=== PATIENT | female | born 1985 | race Caucasian/White ===

== ENCOUNTER 2017-12-11 11:27 | Inpatient (IN) | payer OTHER ==
[~2017-12-11] VITALS: Ht 160 cm; Wt 67.1 kg
== END 2018-01-11 11:47 | disposition home or self-care (01) | DRG 775 ==
LOC: LDR 01-09 09:40 → SURG-SUITE 01-09 09:40 → LDR 01-09 11:11 → SURG-SUITE 01-09 15:09 → OB/GYN 01-10 11:25 → SURG-SUITE 01-11 11:47
PROC: 10E0XZZ Delivery of Products of Conception, External Approach (ICD-10-PCS; principal; 2018-01-09)
PROC: 0KQM0ZZ Repair Perineum Muscle, Open Approach (ICD-10-PCS; 2018-01-09)
PROC: 10907ZC Drainage of Amniotic Fluid, Therapeutic from Products of Conception, Via Natural or Artificial Opening (ICD-10-PCS; 2018-01-09)
PROC: 3E033VJ Introduction of Other Hormone into Peripheral Vein, Percutaneous Approach (ICD-10-PCS; 2018-01-09)
PROC: 4A033R1 Measurement of Arterial Saturation, Peripheral, Percutaneous Approach (ICD-10-PCS; 2018-01-09)
PROC: 4A1HXCZ Monitoring of Products of Conception, Cardiac Rate, External Approach (ICD-10-PCS; 2018-01-09)
DX: O70.1 Second degree perineal laceration during delivery (principal); Z37.0 Single live birth; Z3A.39 39 weeks gestation of pregnancy

== ENCOUNTER 2018-01-01 10:41 | Outpatient (CLI) | payer OTHER | END 2018-01-01 11:46 | disposition home or self-care (01) | LOC: NST 10:41 | DX: Z34.83 Encounter for supervision of other normal pregnancy, third trimester (principal) ==

== ENCOUNTER 2018-01-07 11:02 | Outpatient (CLI) | payer OTHER | END 2018-01-07 12:18 | disposition home or self-care (01) | LOC: NST 11:02 | DX: Z34.83 Encounter for supervision of other normal pregnancy, third trimester (principal) ==

== ENCOUNTER 2020-07-30 12:00 | Inpatient (IN) | payer OTHER ==
[~2020-07-30] VITALS: Ht 160 cm; Wt 66.2 kg
[2020-08-05] MEDS ORDERED: PRENATAL TABLE1 EAC1 PO (09:26)
== END 2020-08-07 13:05 | disposition home or self-care (01) | DRG 807 ==
LOC: SURG-SUITE 08-05 07:37 → LDR 08-05 07:37 → SURG-SUITE 08-05 14:43 → OB/GYN 08-12 12:00
PROVIDERS: ADMIT Obstetrics & Gynecology; ATTEND Obstetrics & Gynecology
PROC: 10E0XZZ Delivery of Products of Conception, External Approach (ICD-10-PCS; principal; 2020-08-05)
PROC: 10907ZC Drainage of Amniotic Fluid, Therapeutic from Products of Conception, Via Natural or Artificial Opening (ICD-10-PCS; 2020-08-05)
PROC: 3E033VJ Introduction of Other Hormone into Peripheral Vein, Percutaneous Approach (ICD-10-PCS; 2020-08-05)
PROC: 0HQ9XZZ Repair Perineum Skin, External Approach (ICD-10-PCS; 2020-08-05)
PROC: 4A1HXFZ Monitoring of Products of Conception, Cardiac Rhythm, External Approach (ICD-10-PCS; 2020-08-05)
DX: O70.0 First degree perineal laceration during delivery (principal); Z37.0 Single live birth; Z3A.39 39 weeks gestation of pregnancy; Z20.828 Contact with and (suspected) exposure to other viral communicable diseases

== ENCOUNTER 2021-11-08 13:55 | Outpatient (CLI) | payer OTHER ==
[~2021-11-08 13:55] MED LIST: PRENATAL TABLE1 EAC1 PO
== END 2021-11-08 15:52 | disposition home or self-care (01) ==
LOC: RAD 13:55
DX: M99.01 Segmental and somatic dysfunction of cervical region (principal); M99.02 Segmental and somatic dysfunction of thoracic region; M99.03 Segmental and somatic dysfunction of lumbar region; M99.05 Segmental and somatic dysfunction of pelvic region; M25.512 Pain in left shoulder

== ENCOUNTER 2022-02-09 16:38 | Outpatient (CLI) | payer OTHER | END 2022-02-09 17:00 | disposition home or self-care (01) | LOC: RAD 16:38 | PROVIDERS: ATTEND Specialist | DX: I10 Essential (primary) hypertension (principal); R07.89 Other chest pain ==

== ENCOUNTER 2022-02-18 12:28 | Outpatient (CLI) | payer OTHER | END 2022-02-18 13:00 | disposition home or self-care (01) | LOC: MRI 12:28 | DX: M25.571 Pain in right ankle and joints of right foot (principal) | CPT/HCPCS: 70551 ==

== ENCOUNTER 2022-02-25 11:30 | Outpatient (CLI) | payer OTHER | END 2022-02-25 15:20 | disposition home or self-care (01) | LOC: TOM 11:30 | PROVIDERS: ATTEND Physical Medicine & Rehabilitation | DX: S06.2X9D Diffuse traumatic brain injury with loss of consciousness of unspecified duration, subsequent encounter (principal) ==

== ENCOUNTER → 2022-04-14 | Outpatient (CLI) | payer OTHER | END | disposition home or self-care (01) | LOC: TOM 09:34 | DX: S06.2X9D Diffuse traumatic brain injury with loss of consciousness of unspecified duration, subsequent encounter (principal) ==

== ENCOUNTER 2022-11-29 08:59 | Outpatient (CLI) | payer OTHER | END 2022-11-29 09:01 | disposition home or self-care (01) | LOC: SONOGRAMA 08:59 | DX: E04.1 Nontoxic single thyroid nodule (principal) ==

== ENCOUNTER 2023-11-13 08:11 | Outpatient (CLI) | payer OTHER | END 2023-11-13 09:33 | disposition home or self-care (01) | LOC: SONOGRAMA 08:11 | DX: E04.2 Nontoxic multinodular goiter (principal) ==

== ENCOUNTER 2025-02-03 08:12 | Outpatient (CLI) | payer OTHER | END 2025-02-04 08:13 | disposition home or self-care (01) | LOC: SONOGRAMA 08:12 | DX: E04.1 Nontoxic single thyroid nodule (principal) ==